=== PATIENT | female | born 1970 | race Caucasian/White ===

== ENCOUNTER 2020-01-15 06:22 | Outpatient (CLI) | payer OTHER | END 2020-01-15 06:31 | disposition home or self-care (01) | LOC: LAB 06:22 | PROVIDERS: ATTEND Internal Medicine Gastroenterology | DX: K30 Functional dyspepsia (principal); R10.10 Upper abdominal pain, unspecified; K21.9 Gastro-esophageal reflux disease without esophagitis; Z12.11 Encounter for screening for malignant neoplasm of colon; R11.0 Nausea; N95.1 Menopausal and female climacteric states ==

== ENCOUNTER 2020-01-15 07:13 | Outpatient (CLI) | payer OTHER | END 2020-01-15 07:20 | disposition home or self-care (01) | LOC: SONOGRAMA 07:13 → MAMO-SONO 07:15 → SONOGRAMA 07:20 | PROVIDERS: ATTEND Internal Medicine Gastroenterology | DX: K30 Functional dyspepsia (principal); R10.10 Upper abdominal pain, unspecified; K21.9 Gastro-esophageal reflux disease without esophagitis; Z12.11 Encounter for screening for malignant neoplasm of colon; R11.0 Nausea ==

== ENCOUNTER 2020-01-16 08:10 | Outpatient (CLI) | payer OTHER | END 2020-01-16 08:12 | disposition home or self-care (01) | LOC: LAB 08:10 | PROVIDERS: ATTEND Internal Medicine Gastroenterology | DX: K30 Functional dyspepsia (principal); R10.10 Upper abdominal pain, unspecified; K21.9 Gastro-esophageal reflux disease without esophagitis; Z12.11 Encounter for screening for malignant neoplasm of colon; R11.0 Nausea ==

== ENCOUNTER 2020-02-10 07:36 | Outpatient (CLI) | payer OTHER | END 2020-02-10 07:37 | disposition home or self-care (01) | LOC: RAD 07:36 | DX: R07.89 Other chest pain (principal) ==

== ENCOUNTER 2020-02-19 06:32 | Outpatient (CLI) | payer OTHER | END 2020-02-19 06:38 | disposition home or self-care (01) | LOC: LAB 06:32 | PROVIDERS: ATTEND Internal Medicine | DX: E03.8 Other specified hypothyroidism (principal); I10 Essential (primary) hypertension; M54.5 Low back pain; Z01.810 Encounter for preprocedural cardiovascular examination; E78.89 Other lipoprotein metabolism disorders; E11.51 Type 2 diabetes mellitus with diabetic peripheral angiopathy without gangrene; E55.9 Vitamin D deficiency, unspecified; E66.8 Other obesity ==

== ENCOUNTER 2020-03-03 06:49 | Emergency (ER) | payer OTHER ==
[~2020-03-03] VITALS: Ht 152.4 cm; Wt 65.8 kg
[2020-03-03] MEDS ORDERED: ALLEGRA ALLERG180 MG (07:10)
[2020-03-03] MEDS ORDERED: SINGULAIR 10MG10 MG (07:10)
[2020-03-03] MEDS ORDERED: ELABIL (07:11)
[2020-03-03] MEDS ORDERED: LOTREL 10-20 M1 EACH (07:11)
[2020-03-03] MEDS ORDERED: FLONASE ALLERG9.9 ML (07:12)
[2020-03-03] MEDS ORDERED: NEXIUM40 M1 (07:12)
[2020-03-03] MEDS ORDERED: NORFLEX100MG PO (10:24)
== END 2020-03-03 14:51 | disposition home or self-care (01) ==
LOC: EMR PED 06:49 → ER 06:49
DX: M54.5 Low back pain (principal)

== ENCOUNTER 2020-05-31 09:20 | Outpatient (CLI) | payer OTHER ==
[~2020-05-31 09:20] MED LIST: ALLEGRA ALLERG180 MG; ELABIL; FLONASE ALLERG9.9 ML; LOTREL 10-20 M1 EACH; NEXIUM40 M1; NORFLEX100MG PO; SINGULAIR 10MG10 MG
== END 2020-05-31 09:53 | disposition home or self-care (01) ==
LOC: NUCLEAR 09:20
PROVIDERS: ATTEND Internal Medicine
DX: I11.9 Hypertensive heart disease without heart failure (principal); M54.5 Low back pain; Z01.810 Encounter for preprocedural cardiovascular examination; E03.8 Other specified hypothyroidism; E78.89 Other lipoprotein metabolism disorders; E11.51 Type 2 diabetes mellitus with diabetic peripheral angiopathy without gangrene; E55.9 Vitamin D deficiency, unspecified; E11.9 Type 2 diabetes mellitus without complications; E66.8 Other obesity

== ENCOUNTER 2020-07-20 08:40 | Outpatient (CLI) | payer OTHER | END 2020-07-20 08:50 | disposition home or self-care (01) | LOC: RAD 08:40 → MAMO-SONO 08:45 → RAD 08:50 | PROVIDERS: ATTEND Internal Medicine | DX: N60.02 Solitary cyst of left breast (principal); Z12.31 Encounter for screening mammogram for malignant neoplasm of breast; N64.59 Other signs and symptoms in breast; E03.8 Other specified hypothyroidism; E78.89 Other lipoprotein metabolism disorders; E11.51 Type 2 diabetes mellitus with diabetic peripheral angiopathy without gangrene; E55.9 Vitamin D deficiency, unspecified; E66.8 Other obesity; Z01.810 Encounter for preprocedural cardiovascular examination; M54.5 Low back pain; I10 Essential (primary) hypertension ==

== ENCOUNTER 2020-09-22 11:04 | Emergency (ER) | payer OTHER ==
[~2020-09-22] VITALS: Ht 152.4 cm; Wt 63.5 kg
[2020-09-22] MEDS ORDERED: METOPROLOL SUCC25 MG PO (11:36)
[2020-09-22] MEDS ORDERED: PROMETRIUM200 MG PO (11:37)
== END 2020-09-22 19:32 | disposition home or self-care (01) ==
LOC: ER 11:04
DX: K29.70 Gastritis, unspecified, without bleeding (principal); R10.11 Right upper quadrant pain

== ENCOUNTER 2021-01-20 08:38 | Outpatient (CLI) | payer OTHER ==
[~2021-01-20 08:38] MED LIST changes: +METOPROLOL SUCC25 MG PO; +PROMETRIUM200 MG PO
== END 2021-01-20 08:54 | disposition home or self-care (01) ==
LOC: RAD 08:38
PROVIDERS: ATTEND Internal Medicine Pulmonary Disease
DX: J45.31 Mild persistent asthma with (acute) exacerbation (principal)